=== PATIENT | female | born 1955 | race Caucasian/White ===

== ENCOUNTER → 2016-08-26 | Outpatient (CLI) | payer OTHER ==
[~2016-08-26] MED LIST: WELLBUTRIN XL150 MG PO; ZPAK PO
== END ==
LOC: RAD 09:37
DX: Z12.31 Encounter for screening mammogram for malignant neoplasm of breast (principal)

== ENCOUNTER 2018-05-06 05:57 | Emergency (ER) | payer OTHER ==
[~2018-05-06] VITALS: Ht 157.5 cm; Wt 108.9 kg
--- NOTE | ~2018-05-06 | EKG ---
[address] [address] ELECTROCARDIOGRAM REPORT Name: JASMINA SUÁREZ Room #: [facility]#: [id number] Admission: 05/06/18 Attend Phys: Discharge: 05/06/18 Date of : 51 Report #: [id number] THIS REPORT FOR: //name// [facility] ED Test Date: 2018-05-06 Test Time: 06:07:13 Pat Name: JASMINA SUÁREZ Department: Room: Gender: F Computer Laboratory Technician: RAFITA NERI : 1955 Requested By: Liban Liu Order Number: [id number] MD: Augusto Cosme Measurements Intervals [place] Rate: 92 P: 61 UT: 171 QRS: 34 QRSD: 91 T: 31 QT: 383 QTc: 474 Interpretive Statements Sinus rhythm Minimal ST depression, anterolateral leads No previous ECG available for comparison Electronically Signed On 05-08-2018 15:00:43 CDT by Augusto Cosme [email or web address] <ELECTRONICALLY SIGNED> By: Augusto Cosme MD 05/08/18 1500 06 Augusto Cosme MD /TYRONE
[2018-05-06 06:35] LABS: ABSOLUTE NEUTROPHILS 4.2 thou/uL (1.4-8.2); BASOPHILS 0.3 % (0.0-2.0); EOSINOPHILS 2.6 % (0.0-3.0); HEMATOCRIT 36.9 % (37.0-47.0); HEMOGLOBIN 12.7 gm/dL (12.0-15.0); LYMPHOCYTES 20.7 % (24.0-44.0); MCH 28.3 pg (26.0-34.0); MCHC 34.4 g/dL (28.0-37.0); MCV 82.3 fL (80.0-100.0); MONOCYTES 9.5 % (1.0-8.0); PLATELET COUNT 238 thou/uL (150-400); POLYS 66.9 % (36.0-66.0); RBC 4.48 mil/uL (4.20-5.00); RDW 14.3 % (10.5-14.5); WBC 6.2 thou/uL (4.0-11.0)
[2018-05-06 06:45] LABS: CALCIUM 9.3 mg/dL (8.5-10.1); CREATININE 1.1 mg/dL (0.6-1.0); POTASSIUM 3.1 mmol/L (3.5-5.1)
[2018-05-06 08:11] LABS: URINE BILIRUBIN NEGATIVE (Negative); URINE BLOOD NEGATIVE (Negative); URINE CLARITY CLEAR; URINE COLOR YELLOW; URINE GLUCOSE-RANDOM* NEGATIVE (Negative); URINE KETONES TRACE (Negative); URINE LEUKOCYTES-REFLEX NEGATIVE (Negative); URINE NITRITE-REFLEX NEGATIVE (Negative); URINE PROTEIN (DIPSTICK) NEGATIVE (Negative); URINE SPECIFIC GRAVITY <= 1.005 (1.005-1.035); URINE UROBILINOGEN 0.2 E.U./dl (0.2-1.0)
[2018-05-06 08:40] VITALS: BP 150/89
== END 2018-05-06 08:40 | disposition home or self-care (01) ==
LOC: ER 05:57
PROVIDERS: Emergency Medicine
DX: E87.6 Hypokalemia (principal); R53.1 Weakness; R22.1 Localized swelling, mass and lump, neck

== ENCOUNTER 2020-01-25 10:24 | Emergency (ER) | payer OTHER ==
[~2020-01-25] VITALS: Ht 157.5 cm; Wt 99.8 kg
[2020-01-25] MEDS ORDERED: NUVIGIL200 MG PO (10:55)
[2020-01-25 12:26] VITALS: BP 127/54
== END 2020-01-25 12:26 | disposition home or self-care (01) ==
LOC: ER 10:24
DX: S61.412A Laceration without foreign body of left hand, initial encounter (principal); F32.9 Major depressive disorder, single episode, unspecified; Z79.899 Other long term (current) drug therapy; Z23 Encounter for immunization; W26.8XXA Contact with other sharp object(s), not elsewhere classified, initial encounter; Y93.89 Activity, other specified; Y92.89 Other specified places as the place of occurrence of the external cause; Y99.8 Other external cause status